=== PATIENT | male | born 1945 | race Caucasian/White ===

== ENCOUNTER 2023-07-06 08:32 | Outpatient (CLI) | payer BC | END 2023-07-06 08:33 | disposition home or self-care (01) | LOC: CSHMRI 08:32 | PROVIDERS: ATTEND Urology | DX: R35.0 Frequency of micturition (principal); Z87.442 Personal history of urinary calculi; E79.0 Hyperuricemia without signs of inflammatory arthritis and tophaceous disease; N28.89 Other specified disorders of kidney and ureter | CPT/HCPCS: 72197; 76770 ==